=== PATIENT | male | born 1955 | race Caucasian/White ===

== ENCOUNTER 2021-07-28 17:21 | Inpatient (IN) | payer MEDICARE, OTHER ==
[~2021-07-28] VITALS: Ht 185.4 cm; Wt 124.4 kg
[2021-07-28 17:56] LABS: HEMOGLOBIN 14.4 gm/dl (14.0-17.5); RED BLOOD COUNT 4.62 M/UL (4.20-5.50); WHITE BLOOD COUNT 8.6 K/UL (4.5-11.0)
[2021-07-28 18:22] LABS: BUN/CREATININE RATIO 10 (0-10)
[2021-07-29 03:07] LABS: HEMOGLOBIN 13.1 gm/dl (14.0-17.5); RED BLOOD COUNT 4.27 M/UL (4.20-5.50)
[2021-07-29 03:24] LABS: BUN/CREATININE RATIO 10 (0-10)
[2021-07-29] MEDS ORDERED: ALPRAZOLAM1 MG PO (09:53)
[2021-07-29] MEDS ORDERED: LEXAPRO20 MG PO (09:54)
[2021-07-29] MEDS ORDERED: GABAPENTIN800 MG PO (09:54)
[2021-07-29] MEDS ORDERED: ATORVASTATIN CA80 MG PO (09:54)
[2021-07-29] MEDS ORDERED: AMLODIPINE BESY10 MG PO (09:54)
[2021-07-29] MEDS ORDERED: COMBIVENT RESPIM4 GM INH (09:55)
[2021-07-29] MEDS ORDERED: HYDROCHLOROTH12.5 MG PO (09:55)
[2021-07-29] MEDS ORDERED: LISINOPRIL20 MG PO (09:56)
[2021-07-29] MEDS ORDERED: TIZANIDINE HCL4 MG PO (09:56)
[2021-07-29] MEDS ORDERED: ASPIRIN EC81 MG PO (09:57)
[2021-07-29] MEDS ORDERED: ASCORBIC ACID500 MG PO (09:57)
[2021-07-29] MEDS ORDERED: VITAMIN D21250 MCG PO (09:57)
[2021-07-30 01:33] LABS: HEMOGLOBIN 13.6 gm/dl (14.0-17.5); RED BLOOD COUNT 4.39 M/UL (4.20-5.50); WHITE BLOOD COUNT 10.5 K/UL (4.5-11.0)
[2021-07-30 01:57] LABS: BUN/CREATININE RATIO 11 (0-10)
[2021-07-31 11:10] LABS: HEMOGLOBIN 14.6 gm/dl (14.0-17.5); RED BLOOD COUNT 4.66 M/UL (4.20-5.50)
[2021-07-31 11:13] LABS: WHITE BLOOD COUNT 13.5 K/UL (4.5-11.0)
[2021-07-31] MEDS ORDERED: LOPRESSOR 25 MG25 MG PO (11:23)
[2021-07-31] MEDS ORDERED: BRILINTA 90 MG90 MG PO (11:23)
[2021-07-31] MEDS ORDERED: LISINOPRIL40 MG PO (11:23)
[2021-07-31] MEDS ORDERED: NITROGLYCERIN0.4 MG SL (11:23)
[2021-07-31 11:48] LABS: BUN/CREATININE RATIO 16 (0-10)
[2021-07-31] MEDS ORDERED: KLOR-CON M2020 MEQ PO (12:00)
[2021-07-31] MEDS ORDERED: IMODIUM CAP 2 MG2 MG PO (12:28)
== END 2021-07-31 14:14 | disposition home or self-care (01) | DRG 247 ==
LOC: ER1 17:21 → CDU 18:56 → PROG CARE 18:56
PROVIDERS: Emergency Medicine; Internal Medicine; Internal Medicine Interventional Cardiology; ADMIT Internal Medicine
PROC: 027135Z Dilation of Coronary Artery, Two Arteries with Two Drug-eluting Intraluminal Devices, Percutaneous Approach (ICD-10-PCS; principal; 2021-07-29)
PROC: 4A023N7 Measurement of Cardiac Sampling and Pressure, Left Heart, Percutaneous Approach (ICD-10-PCS; 2021-07-29)
PROC: B2111ZZ Fluoroscopy of Multiple Coronary Arteries using Low Osmolar Contrast (ICD-10-PCS; 2021-07-29)
PROC: B24BZZZ Ultrasonography of Heart with Aorta (ICD-10-PCS; 2021-07-29)
DX: I21.4 Non-ST elevation (NSTEMI) myocardial infarction (principal); K52.1 Toxic gastroenteritis and colitis; I20.0 Unstable angina; Z20.822 Contact with and (suspected) exposure to COVID-19; E78.5 Hyperlipidemia, unspecified; F41.9 Anxiety disorder, unspecified; G62.9 Polyneuropathy, unspecified; E66.9 Obesity, unspecified; T45.515A Adverse effect of anticoagulants, initial encounter; I08.1 Rheumatic disorders of both mitral and tricuspid valves; R74.01 Elevation of levels of liver transaminase levels; D72.829 Elevated white blood cell count, unspecified; G47.00 Insomnia, unspecified; I10 Essential (primary) hypertension; F17.220 Nicotine dependence, chewing tobacco, uncomplicated; Z88.6 Allergy status to analgesic agent; Z82.49 Family history of ischemic heart disease and other diseases of the circulatory system; Z68.36 Body mass index [BMI] 36.0-36.9, adult
CPT/HCPCS: ECHO; 36415; 71045; 80053; 80061; 82550; 82553; 83036; 84484; 85025; 85027; 85347; 85610; 85730; 93005; 93306; 94640; 94664; 94760; 96374; 97161; 99152; 99153; 99285; C1725; C1769; C1874; C1887; C1894; C9600; C9601; J0360; J1170; J1644; J2250; J3010; J3246; Q9967; U0002

== ENCOUNTER → 2021-08-04 | Outpatient (CLI) | payer MEDICARE, OTHER ==
[~2021-08-04] MED LIST: ALPRAZOLAM1 MG PO; AMLODIPINE BESY10 MG PO; ASCORBIC ACID500 MG PO; ASPIRIN EC81 MG PO; ATORVASTATIN CA80 MG PO; BRILINTA 90 MG90 MG PO; COMBIVENT RESPIM4 GM INH; GABAPENTIN800 MG PO; HYDROCHLOROTH12.5 MG PO; IMODIUM CAP 2 MG2 MG PO; KLOR-CON M2020 MEQ PO; LEXAPRO20 MG PO; LISINOPRIL20 MG PO; LISINOPRIL40 MG PO; LOPRESSOR 25 MG25 MG PO; NITROGLYCERIN0.4 MG SL; TIZANIDINE HCL4 MG PO; VITAMIN D21250 MCG PO
[2021-08-04 12:23] LABS: HEMOGLOBIN 13.5 gm/dl (14.0-17.5); RED BLOOD COUNT 4.36 M/UL (4.20-5.50); WHITE BLOOD COUNT 12.5 K/UL (4.5-11.0)
== END ==
LOC: LAB 11:54
PROVIDERS: Internal Medicine
DX: D72.829 Elevated white blood cell count, unspecified (principal); I25.10 Atherosclerotic heart disease of native coronary artery without angina pectoris; R79.0 Abnormal level of blood mineral
CPT/HCPCS: 36415; 80053; 85025

== ENCOUNTER → 2021-09-25 | Outpatient (CLI) | payer MEDICARE, OTHER | LOC: ECHO 08:30 | DX: I25.10 Atherosclerotic heart disease of native coronary artery without angina pectoris (principal); I21.9 Acute myocardial infarction, unspecified; I10 Essential (primary) hypertension; I08.8 Other rheumatic multiple valve diseases | CPT/HCPCS: ECHO; 93306 ==

== ENCOUNTER 2021-10-10 23:24 | Inpatient (IN) | payer MEDICARE, OTHER ==
[~2021-10-10] VITALS: Ht 185.4 cm; Wt 106.6 kg
[~2021-10-10 23:24] MED LIST changes: -VITAMIN D21250 MCG PO; +VITAMIN D325 MC6 PO
[2021-10-10 23:44] LABS: HEMOGLOBIN 14.5 gm/dl (14.0-17.5); RED BLOOD COUNT 4.63 M/UL (4.20-5.50); WHITE BLOOD COUNT 12.8 K/UL (4.5-11.0)
[2021-10-11 00:11] LABS: BUN/CREATININE RATIO 9 (0-10)
--- NOTE | 2021-10-11 09:08 | NUR ---
NOTIFIED DR VERDUGO OF [facility]. NO NEW ORDERS AT THIS TIME.
[2021-10-11] MEDS ORDERED: NITROGLYCERIN0.4 MG SL (11:25)
[2021-10-11] MEDS ORDERED: ASPIRIN EC81 MG PO (11:26)
[2021-10-11] MEDS ORDERED: XANAX0.5 MG PO (12:18)
--- NOTE | 2021-10-11 12:22 | NUR ---
1215- NOTIFIED DR PLASCENCIA OF PATIENTS COMPLAINTS WITH ANXIETY AND WANTING HOME MEDICATION XANAX ORDERED. NEW ORDER TO CONTINUE XANAX.
--- NOTE | 2021-10-11 14:29 | NUR ---
1405- PATIENT LEFT FOR PHYSICIAN SCIENTIST AT THIS TIME.
[2021-10-12 05:00] LABS: RED BLOOD COUNT 4.22 M/UL (4.20-5.50); WHITE BLOOD COUNT 11.1 K/UL (4.5-11.0)
[2021-10-12 05:39] LABS: BUN/CREATININE RATIO 13 (0-10)
[2021-10-13 01:14] LABS: HEMOGLOBIN 12.9 gm/dl (14.0-17.5); RED BLOOD COUNT 4.15 M/UL (4.20-5.50); WHITE BLOOD COUNT 10.6 K/UL (4.5-11.0)
[2021-10-13 01:33] LABS: BUN/CREATININE RATIO 16 (0-10)
[2021-10-13] MEDS ORDERED: LOPRESSOR 25 MG25 MG PO (08:28)
[2021-10-13] MEDS ORDERED: BRILINTA 90 MG90 MG PO (08:28)
[2021-10-13] MEDS ORDERED: ISOSORBIDE MONO30 MG PO (08:28)
[2021-10-13] MEDS ORDERED: ATORVASTATIN CA80 MG PO (08:28)
== END 2021-10-13 13:15 | disposition home or self-care (01) | DRG 282 ==
LOC: ER1 23:24 → M/S 10-11 00:51 → CDU 10-11 00:51 → M/S 10-11 03:13
PROVIDERS: Family Medicine; Internal Medicine; ADMIT Internal Medicine
PROC: 4A023N7 Measurement of Cardiac Sampling and Pressure, Left Heart, Percutaneous Approach (ICD-10-PCS; 2021-10-11)
PROC: B2111ZZ Fluoroscopy of Multiple Coronary Arteries using Low Osmolar Contrast (ICD-10-PCS; 2021-10-11)
PROC: B24BZZZ Ultrasonography of Heart with Aorta (ICD-10-PCS; principal; 2021-10-12)
DX: I21.4 Non-ST elevation (NSTEMI) myocardial infarction (principal); Z20.822 Contact with and (suspected) exposure to COVID-19; I10 Essential (primary) hypertension; I95.2 Hypotension due to drugs; E78.5 Hyperlipidemia, unspecified; F41.9 Anxiety disorder, unspecified; F32.A Depression, unspecified; E87.6 Hypokalemia; F17.220 Nicotine dependence, chewing tobacco, uncomplicated; E11.42 Type 2 diabetes mellitus with diabetic polyneuropathy; T50.995A Adverse effect of other drugs, medicaments and biological substances, initial encounter; Z95.5 Presence of coronary angioplasty implant and graft; Z79.4 Long term (current) use of insulin; Z79.01 Long term (current) use of anticoagulants; Z79.82 Long term (current) use of aspirin; Z82.49 Family history of ischemic heart disease and other diseases of the circulatory system; Z88.8 Allergy status to other drugs, medicaments and biological substances; I25.2 Old myocardial infarction
CPT/HCPCS: 36415; 71045; 80048; 80053; 82550; 82553; 83036; 83735; 84132; 84484; 85025; 85347; 85610; 85730; 93005; 93308; 96374; 99152; 99153; 99285; C1769; C1894; J1644; J2250; J3010; J7040; Q9967

== ENCOUNTER 2021-12-03 18:06 | Inpatient (IN) | payer MEDICARE, OTHER ==
[~2021-12-03] VITALS: Ht 185.4 cm; Wt 104.3 kg
[~2021-12-03 18:06] MED LIST changes: +ISOSORBIDE MONO30 MG PO; +XANAX0.5 MG PO
[2021-12-03 19:29] LABS: HEMOGLOBIN 16.3 gm/dl (14.0-17.5); RED BLOOD COUNT 5.18 M/UL (4.20-5.50); WHITE BLOOD COUNT 12.6 K/UL (4.5-11.0)
[2021-12-03 20:23] LABS: BUN/CREATININE RATIO 8 (0-10)
[2021-12-04 03:25] LABS: HEMOGLOBIN 14.4 gm/dl (14.0-17.5); RED BLOOD COUNT 4.79 M/UL (4.20-5.50)
[2021-12-04 03:28] LABS: WHITE BLOOD COUNT 16.6 K/UL (4.5-11.0)
[2021-12-04] MEDS ORDERED: OXYCODONE-ACET1 EACH PO (05:09)
== END 2021-12-04 16:02 | disposition short-term general hospital (02) | DRG 282 ==
LOC: ER1 18:06 → CDU 21:19 → PROG CARE 21:19
PROVIDERS: Internal Medicine; Preventive Medicine Occupational Medicine; ADMIT Internal Medicine
PROC: B24BZZZ Ultrasonography of Heart with Aorta (ICD-10-PCS; principal; 2021-12-04)
PROC: 4A023N7 Measurement of Cardiac Sampling and Pressure, Left Heart, Percutaneous Approach (ICD-10-PCS; 2021-12-04)
PROC: B2111ZZ Fluoroscopy of Multiple Coronary Arteries using Low Osmolar Contrast (ICD-10-PCS; 2021-12-04)
DX: I21.4 Non-ST elevation (NSTEMI) myocardial infarction (principal); Z20.822 Contact with and (suspected) exposure to COVID-19; I25.10 Atherosclerotic heart disease of native coronary artery without angina pectoris; I10 Essential (primary) hypertension; E78.5 Hyperlipidemia, unspecified; F41.9 Anxiety disorder, unspecified; F17.290 Nicotine dependence, other tobacco product, uncomplicated; G47.00 Insomnia, unspecified; E66.9 Obesity, unspecified; F32.A Depression, unspecified; E78.00 Pure hypercholesterolemia, unspecified; E11.42 Type 2 diabetes mellitus with diabetic polyneuropathy; Z95.5 Presence of coronary angioplasty implant and graft; Z95.1 Presence of aortocoronary bypass graft; Z79.01 Long term (current) use of anticoagulants; Z79.82 Long term (current) use of aspirin; Z88.6 Allergy status to analgesic agent; Z82.49 Family history of ischemic heart disease and other diseases of the circulatory system; I25.2 Old myocardial infarction; Z68.30 Body mass index [BMI] 30.0-30.9, adult
CPT/HCPCS: ECHO; 0240U; 36415; 71045; 80053; 81001; 82550; 82553; 83690; 84484; 85025; 85347; 85610; 85730; 86140; 87086; 93005; 93306; 99152; 99153; 99285; C1769; C1894; J1644; J2250; J3010; Q9967